=== PATIENT | female | born 1960 ===

== ENCOUNTER 2017-12-01 01:57 | Day surgery (SDC) | payer BC ==
[~2017-12-01] VITALS: Ht 163.8 cm; Wt 69.9 kg
[~2017-12-01 01:57] MED LIST: ACYC-1 PO; LACT1CAP6 PO; MULT-67 PO
[2017-12-01] MEDS ORDERED: HEPARIN SOD LCK FLSH 100 UN/ML ONE ×2 (08:04→08:05)
[2017-12-01] MEDS ORDERED: ROPIVACAINE 0.5% 20 ML VIAL ONE (08:05)
[2017-12-01] MEDS ORDERED: NS(*) 0.9% 10 ML VIAL 10 ML ONE (08:05)
[2017-12-01] MEDS ORDERED: FAMOTIDINE(*) 20MG/50ML PREMIX 50 ML IVPB ONE (09:42)
[2017-12-01 09:46] VITALS: BP 105/70
[2017-12-01] MEDS ORDERED: FAMOTIDINE 20 MG TAB PO ONE (10:00)
[2017-12-01] MEDS ORDERED: LIDOCAINE/SOD BICARB 8.4% SYR ID ONE (10:00)
[2017-12-01] MEDS ORDERED: ceFAZolin(*) 2GM/D5W 50ML 50 ML IVPB ONE (10:00)
[2017-12-01] MEDS ORDERED: NORMOSOL R SOLN(*) 1000 ML BAG 1,000 ML IV PRN (10:00)
[2017-12-01] MEDS ORDERED: MIDAZOLAM 2 MG/2 ML VIAL IVP PRN (10:00)
--- NOTE | 2017-12-01 10:08 | Short(Outpt) Discharge Summary ---
Discharge Summary Reason for Hosp/Final Diag: (1) Rectal cancer Status: Chronic Hospital Course & Plan: Right IJ Power Port placement completed without problems. Departure Discharge to: Home, Self Care Discharge Instructions Home Meds Reported Medications Multivitamin/Iron/Folic Acid (Centrum Adults Tablet) 18 Mg Iron-400 Mcg Tablet, 1 TAB-CAP PO DAILY 11/28/17 Lactobacillus Combination No.4 (PROBIOTIC) 1 Each Capsule, 1 EACH PO DAILY, CAPSULE 11/28/17 Acyclovir (ACYCLOVIR) 200 Mg Capsule, 200 MG PO PRN, #10 CAP 11/28/17 Diet: Regular Activity: As Tolerated Special Instructions: You may shower starting on 12/03/17, but don't immerse the incisions for 2 weeks. You can leave the incisions open to air but leave the steristrips in place until they fall off on their own. There is a suture in the tiny right neck incision that is dissolvable and should fall out in the next 2 weeks. If it doesn't, gently pull on the knot and it may come out with gentle force. If not, if you're comfortable, you can remove it with scissors or you can have someone at the cancer center remove it or I'd be happy to remove it in my office. All other sutures are under your skin and will dissolve over time. You do not need to follow up with me but if you feel that you're having problems related to your port, please call my office. My nurse's direct line is [phone]. She is out of the office on since I'm in the OR all day but she is there the rest of the week (excluding weekends). SHARONDA PACE MD Dec 01, 2017 10:08
--- NOTE | 2017-12-01 10:50 | Post Operative Progress Note ---
Post Operative Progress Note Date: Dec 01, 2017 Time: 10:08 Surgeon: Bernice Dictation number: [id number] Anesthesia: LMA by Dr. Patiño Pre-Op Diagnosis: Rectal cancer Post-Op Diagnosis: XOCHILT Findings: None Procedure(s): Right IJ Power Port Placement Specimen Removed:(May be N/A): None Complications: None Fluids: See anesthesia record Estimated Blood Loss: Minimal Date OP Note Dictated: Dec 01, 2017 Time OP Note Dictated: 10:09 SHARONDA PACE MD Dec 01, 2017 10:10
[2017-12-01] MEDS ORDERED: fentaNYL CITR 100 MCG/2 ML AMP ONE (11:05)
--- NOTE | 2017-12-01 11:16 | RADIOLOGY IMAGING REPORT ---
[place] [facility] [place] Phuong Echeverria : 1960 MR: [id number] V: [id number] EXAM DATE: ORDERING PHYSICIAN: SHARONDA PACE TECHNOLOGIST: [facility] [place] Patient: Phuong Echeverria : 1960 Visit/Account:[id number] Date of Sevice: 12/01/2017 Exam type: C-ARM FLUORO PORT/CATH History: Port placement Comparison: None. Findings: A single intraoperative fluoroscopic spot view over the right upper thorax demonstrate placement of a right IJ port. The continuous total fluoroscopy dose was 0.22727 mGray per meter squared. The cont inuous fluoroscopy time was 22.8 seconds. IMPRESSION: 1. As above Report Dictated By: Lenore Lucio MD at 12/01/2017 11:11 AM Report E-Signed By: Lenore Lucio MD at 12/01/2017 11:12 AM WSN:AMICIVChip
[2017-12-01 11:55] VITALS: BP 105/76
--- NOTE | 2017-12-01 11:55 | RADIOLOGY IMAGING REPORT ---
FACILITY: [facility] PATIENT NAME: Phuong Echeverria : 1960 MR: [id number] V: [id number] EXAM DATE: ORDERING PHYSICIAN: SHARONDA PACE TECHNOLOGIST: Location: [facility] [place] Patient: Phuong Echeverria : 1960 Visit/Account:[id number] Date of Sevice: 12/01/2017 CHEST SINGLE AP History: Power Port placement FINDINGS: Comparison studies: None. Tubes and Lines: There is an Implanted power port from a right IJ approach with tip projecting over the mid SVC. Lungs and pleura: Well aerated. No evidence of focal consolidation or pleural effusions. No evid ence of pneumothorax. Mediastinum: normal. Cardiac silhouette: normal . Osseous structures: Unremarkable for age . IMPRESSION: Power port appears appropriately positioned without adverse sequelae. No acute cardiopulmonary pathology identified. Report Dictated By: Connor Way MD at 12/01/2017 11:49 AM Report E-Signed By: Connor Way MD at 12/01/2017 11:50 AM WSN:[email or web address]
[2017-12-01 13:27] VITALS: BP 104/69
[2017-12-01 13:28] VITALS: BP 100/70
--- NOTE | 2017-12-01 17:19 | OPERATIVE REPORT 1 ---
EVENT DATE: December 01, 2017 SURGEON: Wilman Queen MD ANESTHESIOLOGIST: Scotty Patiño MD ANESTHESIA: LMA. PREOPERATIVE DIAGNOSIS Rectal cancer. POSTOPERATIVE DIAGNOSIS Rectal cancer. PROCEDURE PERFORMED Right internal jugular PowerPort placement. COMPLICATIONS None. CONDITION Stable. BLOOD LOSS Minimal. INDICATIONS This is a 57-year-old female who, unfortunately, was recently diagnosed with a rectal cancer. She has seen Oncology, and they are setting her up for neoadjuvant chemotherapy. They have requested her to have a chemotherapy port to facilitate this. DESCRIPTION OF PROCEDURE Patient was brought to the operating room and placed supine on the operating table. LMA anesthesia was administered, and her right neck, jaw line, chest, and shoulder were prepped and draped in a sterile fashion. Timeout was completed. With the patient in Trendelenburg, I used the ultrasound probe to identify her internal jugular vein. I used the access needle and accessed it on one attempt. I threaded the wire through the needle and removed the needle. I used the C-arm to position the wire in the SVC just above the right atrium. I then marked the skin and then anesthetized the skin at the access site in her neck as well as in the infraclavicular skin for the port pocket. I then made a stab incision in her neck at the level of the wire and then a transverse incision in the infraclavicular skin. I dissected through the dermis at this location and dissected into the subcutaneous fat and then created a pocket caudad to the incision. I made sure this was hemostatic and then used the tunneler and directed the catheter through the subcutaneous tissues from the pocket up to the stab incision in the neck and then threaded the dilator and sheath over the wire with the patient in Trendelenburg. I used the C-arm to confirm that the dilator and sheath and wire were still in the SVC. I then removed the dilator and wire and then threaded the catheter through the sheath. I removed the sheath and then pulled the catheter back using the C-arm to position in the SVC just above the right atrium. I then cut the catheter to length, placed the port on the catheter, and locked it in place with a locking collar. I sutured the port to the underlying muscle fascia with 3-0 nylon at the corners. I then aspirated blood through the port and catheter and then flushed it with 10 mL of preservative-free saline, followed by 5 mL of 100 units /mL of heparinized saline. It aspirated and flushed with no problems. I took more C-arm images to confirm that the catheter was without any kinks or twists, and everything was in good position. It looked good. I then placed a single 3- 0 chromic suture in a stab incision in the neck and then closed the infraclavicular incision with interrupted 3-0 Vicryl deep dermal sutures and 4- 0 Monocryl running subcuticular sutures. Skin was clean and dried, and Steri- Strips were applied. The patient was awakened in the LMA room, and she was transported to the recovery room in stable condition having tolerated the procedure without any apparent problems. EDGAR
== END 2017-12-01 11:55 | disposition home or self-care (01) ==
LOC: OR 01:57
PROVIDERS: ATTEND Surgery
DX: C20 Malignant neoplasm of rectum (principal)
CPT/HCPCS: 36561; 71045; 77001; J1642; J2250; J2795; J3010; J3490; J0690

== ENCOUNTER 2018-02-07 10:50 | Outpatient (RCR) | payer BC ==
[2017-11-29 17:15] LABS: PLATELET COUNT, AUTOMATED 277 K/uL (150-450)
--- NOTE | 2017-11-30 04:32 | TOBIN CONSULT ---
EVENT DATE: November 29, 2017 PRIMARY SITE AND HISTOPATHOLOGY Invasive adenocarcinoma of the rectum, moderately differentiated. Tumor is negative for microsatellite instability. Tumor estimated at 4-5 cm from anal canal. Mass is 80% circumferential with partial obstruction. Patient referred for preoperative radiotherapy with concurrent systemic chemotherapy considerations. Stage T3 NX M0. 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 She is referred to me by Dr. Giovanni Lacy to discuss radiotherapy options for newly diagnosed rectal carcinoma. Patient moved to [place] this past July. She is still working in [place] in [facility] at this time, but hopes to establish a practice locally this next year. The patient presents to her providers with frequent bowel movements with intermittent rectal bleeding. Rectal bleeding could be present with bowel movements and also between bowel movements. This was associated with increased gas and mucus. Bowel frequency is fairly unpredictable according to the patient over the last six months. She has noticed a change in the caliber of the stools. Stools are generally quite soft, and she has the feeling of incomplete evacuation. At times, the patient will notice some lower perirectal pain. The patient sought evaluation with [place] providers. The initial endoscopy was performed by Dr. Jeffrey Jacobson. Endorectal ultrasound was performed by Dr. Diaz Corral. Colonoscopy date November 10, 2017 with biopsy positive for moderately differentiated adenocarcinoma. Tubular adenoma was removed from the rectosigmoid junction, and tubular adenoma was removed from the cecum. Radiographic interpretation has included a lower EUS, which was performed on November 22, 2017 confirming the T3 lesion as stated above. The patient underwent CT scan of the abdomen and pelvis in [place]. That study was reviewed on the PAC system with clear identification of the mass. CT report is now available. This was obtained on November 21, 2017, and was read as negative. I have requested a PET CT scan, which will be obtained later this week. Patient was worked into the schedule by Dr. Reich on Tuesday of this week in [place]. She was advised that she would need preoperative radiation therapy and an infusion of 5-FU, and is seen today for consultation. She is scheduled to have a CBC, CMP and CEA tumor marker drawn this afternoon. Patient's other complaint is fatigue. This has been increasing over the past year. She denies any change in her weight, however. No bone pain or respiratory symptoms. She does at times experience intermittent right upper quadrant pain. She states that she had an ultrasound study of her gallbladder earlier last year in [place] and was told that this was negative. Patient is seen for an initial assessment. FAMILY HISTORY Family history is positive for colon carcinoma in maternal first cousin at age 40, maternal uncle with colon carcinoma at age 50. Maternal great aunt had colon carcinoma as well. MEDICATIONS 1. Acyclovir 200 mg q.day. 2. Folic acid daily. 3. Probiotic daily. ALLERGIES None. PAST MEDICAL HISTORY Total abdominal hysterectomy, [place], remotely. Prior tonsillectomy. SOCIAL HISTORY Patient works real time analyst as a chiropractor. She has one brother. She is a nonsmoker. No children, single. PHYSICAL EXAMINATION GENERAL: The patient is pleasant 57-year-old female, medium build. VITALS: Vitals uploaded to EMR. HEENT: No peripheral lymphadenopathy. LUNGS: Clear bilaterally. HEART: Regular, no audible murmur. ABDOMEN: Soft with no gross organomegaly, mass or tenderness. RECTAL: Rectal exam was performed in the Weaver' position. Good sphincter tone. Mass could be palpated at the tip of the examining finger. This appeared to be a polypoid mass posteriorly. I would characterize this as tethered, but not fixed. Blood was present on the examining finger glove. EXTREMITIES: No edema or cyanosis. NEUROLOGICAL: Exam is intact. IMPRESSION This is a 57-year-old female with newly diagnosed adenocarcinoma of the mid to lower rectum. Tumor is described as occupying 80% of the circumference of the lumen of the rectum, and appears to be a full thickness T3 lesion by endorectal ultrasound. RECOMMENDATIONS Dr. Reich and I have both advised the patient to have a PET CT scan, which will be useful in demonstrating the lesion and also has a higher sensitivity for any pelvic lymph nodes. This will be scheduled for later this week if possible. Baseline CBC, CMP and CEA were drawn after my visit today. I went through the present NCCN guidelines for rectal carcinoma with the patient today on the computer. I reviewed her outside imaging. I described the radiation therapy course, which is given with an IMRT treatment technique in modern centers, covering the primary mass with a 2-3 cm margin, and treatment barth encompassing the draining lymphatics. Treatment course will cover the primary mass and lymph nodes to 45 gipson and 25 fractions with a boost of 55 gipson and 5 fractions. Treatment will be delivered with week one and week five infusional 5FU. Patient will need surgical resection of the mas six to eight weeks following completion of the radiotherapy course. She is presently determining which surgeon she would like to consult with for an opinion. She obviously is very interested in the potential of an LAR resection following the radiotherapy course for sphincter preservation. I told her that this is a surgical judgement , and hopefully this would be possible at the completion of the chemotherapy and radiation course. I suspect she would undergo repeat endoscopic reassessment at approximately six weeks and appropriate imaging. In general, our protocol is to utilize PET CT scan at baseline and also at six weeks to determine response prior to surgery. Patient was reassured by the consultation today. Clinical consultation took approximately 90 minutes. Targeting simulation has been scheduled for Tuesday of this week. Treatments will start at approximately ten days after insurance preauthorization has been completed. Patient has been referred for port placement. All questions answered to her satisfaction. I suspect the mucin produced by the tumor is interfering with her ability to detect stools accurately. Since we have the correct diagnosis, she can take one or two Imodium AD tablets at this time to slow the bowel frequency down. Typically, the bleeding will stop by week three to four of the radiation course, and stools tend to normalize towards the end of the treatment program. Hopefully this will be the case for this lady as well. She would like to continue to work during the treatment course, and I have no objection to that plan. Thank you for the referral and expedited consultation earlier this week. (addendum: 12/13/17 Radiation therapy pre-op course started 12/12/17 with IV 5FU directed by medical oncology; final pre0p stage: T3 N0 M0 clinical by imaging; surgery 6-8 weeks post pre-op therapy) [facility]
--- NOTE | 2018-01-31 22:08 | ONCOLOGY COMPLETION NOTE ---
EVENT DATE: January 31, 2018 ONCOLOGY DIAGNOSIS Invasive adenocarcinoma of the rectum, moderately differentiated. Tumor location estimated at 4 to 5 cm from the distal anal canal. Tumor is 80% circumferential with partial obstruction. Radiographic stage [id number]. TREATMENT PLAN Preoperative external beam radiation therapy, to be followed by surgical resection. The radiation therapy was started December 12, 2017, date completed January. DOSE AND TECHNIQUE 4500 cGy was delivered in 25 fractions at 180 cGy per fraction directed to the primary rectal mass with a 2 to 3 cm circumferential margin and coverage of the pelvic lymph nodes. Field reduction was performed for the last five treatments , which were delivered to the rectal mass only. Additional 1000 cGy was delivered in five fractions at 200 cGy per fraction for a combined dose of 5500 cGy in 30 treatments to the rectal tumor with weekly 5FU infusion. The latter was directed by Dr. Reich. TOLERANCE "Milka" did reasonably well with the treatment program. Both Dr. Olivo and I saw her on several occasions where she was having some perirectal discomfort. Patient, unfortunately, has fair to poor control of the bowels due to the low location of the rectal mass and at times may experience seepage. She did have some initial sensitivity to the 5FU medications. Adjustments were made by Dr. Giovanni Graff, and she was able to resume treatment and complete the program. The patient will next follow up with Dr. Vergara for initial surgical consultation in [place], [place]. This is scheduled on February 01, 2018, according to our staff. Patient was informed that she could come into the [facility] at any point if she is having any problems. We would expect continued cytoreduction from the chemotherapy and radiation program over the next six to eight weeks. Patient understandably is hoping that she can have a sphincter preservation surgical technique; I have emphasized to her that this decision will be up to her surgeon based on probablilities of intact spincter control. Patient has been instructed to follow up with Dr. Reich for next medical oncology recommendations three to five weeks following her surgical excision. [facility]
[~2018-02-07] VITALS: Ht 163.8 cm; Wt 72.0 kg
[~2018-02-07 10:50] MED LIST changes: +DIPH-1 PO; +SILV20CR2 TP; +VENL37.594 PO
== END 2018-02-26 ==
LOC: RAON 10:50
PROVIDERS: ATTEND Radiology Radiation Oncology
DX: Z51.0 Encounter for antineoplastic radiation therapy (principal); C20 Malignant neoplasm of rectum; M54.5 Low back pain; R53.83 Other fatigue; R06.02 Shortness of breath; R19.7 Diarrhea, unspecified; K92.1 Melena
CPT/HCPCS: 36415; 77280; 77290; 77300; 77301; 77336; 77338; 77386; 82040; 82247; 82310; 82374; 82378; 82435; 82565; 82947; 84075; 84132; 84155; 84295; 84450; 84460; 84520; 85025; 99203; 99213

== ENCOUNTER 2018-02-24 09:58 | Outpatient (RCR) | payer BC ==
[2017-12-12 09:32] VITALS: BP 108/73
--- NOTE | 2017-12-15 17:49 | ONCOLOGY FOLLOW UP NOTE ---
EVENT DATE: December 15, 2017 DIAGNOSES 1. Stage T3 rectal adenocarcinoma. 2. Tubular adenoma. CHIEF COMPLAINT Patient is here today for her week two of 5-FU intravenous continuous infusion for the treatment of neoadjuvant treatment for her rectal adenocarcinoma. ONCOLOGY HISTORY Patient is a 57-year-old female who presented with change in bowel movement with diarrhea, smaller caliber stools and rectal bleeding. She had a colonoscopy done on November 10, [address] Jeffrey Jacobson and two sessile 5 mm polyps were found at the rectosigmoid junction and 3 mm sessile polyp at the cecum. All turned out to be tubular adenoma by pathology. There was an ulcerated fungating 4 cm mass found in the cecum, 3-5 cm from the anus with partial obstruction, and the pathology was positive for moderately differentiated adenocarcinoma, negative for MSI by immune stain. She had an EUS done on November 22, 2017 which showed a mass in the rectum with uT3 and uN0 with no lymph nodes seen. CT abdomen and pelvis done on November 21, 2017 showed no evidence of systemic metastasis. She had central port placed on December 01, 2017. Patient started chemoradiation with 5-FU intravenous continuous infusion started on December 12, 2017. PAST MEDICAL HISTORY Insignificant, except for her recent rectal adenocarcinoma. PAST SURGICAL HISTORY 1. Hysterectomy. 2. Tonsillectomy as a child. SOCIAL HISTORY Patient is single with no children. 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 She drinks rarely. Denies any use of illicit drugs. FAMILY HISTORY Maternal first cousin had colon cancer at the age of 40. Maternal uncle with colon cancer in his 50s and a maternal great aunt had also colon cancer. CURRENT MEDICATIONS 1. Multivitamin. 2. Lactobacillus combination. 3. Probiotic one capsule daily. 4. Acyclovir 200 mg orally as needed. ALLERGIES No known drug allergies. REVIEW OF SYSTEMS CONSTITUTIONAL: No appetite or weight change. No fever, chills or sweating. No recent infection. HEENT: Ears: No tinnitus or hearing problem. Nose: No nasal discharge or epistaxis. Throat: No sore throat or mouth ulcers. Eyes: No diplopia or visual changes. RESPIRATORY: Patient has some shortness of breath. No cough, expectoration or hemoptysis. CARDIOVASCULAR: No chest pain, orthopnea, or paroxysmal nocturnal dyspnea (PND) . No edema. No palpitations. GASTROINTESTINAL: No nausea or vomiting. No diarrhea or constipation. No change in bowel movements. No heartburn or swallowing difficulties. No abdominal pain. No jaundice. No hematemesis, melena or rectal bleeding. GENITOURINARY: No hematuria or dysuria. MUSCULOSKELETAL: No pain in the muscles, joints or bones. NEUROLOGICAL: No tingling or numbness in the hands or feet. No headaches or convulsions. HEMATOLOGIC/LYMPHATIC: No bleeding or easy bruising. No weakness or fatigue. No enlarged lymph nodes. SKIN: No skin rash or lumps. PSYCHIATRIC: No anxiety or depression. PHYSICAL EXAMINATION GENERAL: Looks stable. Well-developed, well-nourished, and in no acute distress. VITAL SIGNS: Blood pressure 104/66, pulse 64 per minute, respirations 16 per minute, temperature 99.1, pulse ox 96% on room air. HEENT: Head: Atraumatic. No sinus tenderness to palpation. Eyes: No icterus or conjunctivitis. Mouth and Throat: No oral thrush or mucositis. NECK: Supple. No cervical or supraclavicular lymphadenopathy. LUNGS: Clear to auscultation and percussion bilaterally. HEART: Regular rate and rhythm. No gallops, murmurs, clicks or rubs. ABDOMEN: Soft and lax. No tenderness. No hepatosplenomegaly. No masses. EXTREMITIES: No cyanosis, clubbing or edema. LYMPHATICS: No peripheral lymphadenopathy. NEUROLOGICAL: Conscious, alert and oriented times three. No focal motor or sensory deficits. PSYCHIATRIC: Mood and affect appear normal. SKIN: No skin rash, bruise or purpuric eruption. DIAGNOSTIC DATA CBC shows white count 6.4, hemoglobin 13.1, hematocrit 37.8, platelets 271,000. Chem panel totally normal. CEA was 3.1. ASSESSMENT 1. Stage III rectal adenocarcinoma moderately differentiated negative for MSI by immunostain after colonoscopy and biopsy of the rectal mass done on November 10, 2017. EUS on November 22, 2017 showed T3 lesion with no lymph nodes. CT abdomen and pelvis on November 21, 2017 was negative for systemic metastasis. Her pretreatment CEA was 3.1. Patient started treatment with chemoradiation with 5- FU intravenous continuous infusion started on December 12, 2017. Patient is tolerating treatment very well so far. I am planning to proceed with her week two of 5-FU intravenous continuous infusion as per schedule. I will see her in a week with CBC, chem panel and CEA at that time. So far patient is doing really very well. 2. Tubular adenoma of the rectosigmoid and cecal polyps by colonoscopy done on November 10, 2017. PLAN 1. 5-FU intravenous continuous infusion week two. 2. Patient to return in one week with CBC, chem panel, CEA. 3. Patient to contact us for any new concerns or complaints. MTDD
[2017-12-16] MEDS: HEPARIN FLSH (PORT) 500 UN/5ML IVP PRN (08:26)
[2017-12-19 10:49] VITALS: BP 121/80
[2017-12-22 16:24] VITALS: BP 104/69
--- NOTE | 2017-12-22 20:15 | ONCOLOGY FOLLOW UP NOTE ---
EVENT DATE: December 22, 2017 DIAGNOSES 1. Stage T3 rectal adenocarcinoma. 2. Tubular adenoma. CHIEF COMPLAINT Patient is here today for her week three of 5-FU intravenous continuous infusion for the treatment of neoadjuvant therapy for her rectal adenocarcinoma. ONCOLOGY HISTORY Patient is a 57-year-old female who presented with change in bowel movement with diarrhea, smaller caliber stools and rectal bleeding. She had a colonoscopy done on November 10, [address] Jeffrey Jacobson and two sessile 5 mm polyps were found at the rectosigmoid junction and 3 mm sessile polyp at the cecum. All turned out to be tubular adenoma by pathology. There was an ulcerated fungating 4 cm mass found in the cecum, 3-5 cm from the anus with partial obstruction, and the pathology was positive for moderately differentiated adenocarcinoma, negative for MSI by immune stain. She had an EUS done on November 22, 2017 which showed a mass in the rectum with uT3 and uN0 with no lymph nodes seen. CT abdomen and pelvis done on November 21, 2017 showed no evidence of systemic metastasis. She had central port placed on December 01, 2017. Patient started chemoradiation with 5-FU intravenous continuous infusion started on December 12, 2017. HISTORY OF PRESENT ILLNESS Patient is here today for her week three of IV continuous infusion 5-FU neoadjuvant therapy for her rectal adenocarcinoma. Patient is tolerating treatment very well so far. She is complaining of occasional bloody nose. She has also exertional shortness of breath. She has rectal bleeding, but it is stable. She has burning in her vagina lately and around the anal area, but other than that she is really tolerating treatment well. PAST MEDICAL HISTORY Insignificant, except for her recent rectal adenocarcinoma. PAST SURGICAL HISTORY 1. Hysterectomy. 2. Tonsillectomy as a child. SOCIAL HISTORY Patient is single with no children. 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 She drinks rarely. Denies any use of illicit drugs. FAMILY HISTORY Maternal first cousin had colon cancer at the age of 40. Maternal uncle with colon cancer in his 50s and a maternal great aunt had also colon cancer. CURRENT MEDICATIONS 1. Multivitamin. 2. Lactobacillus combination. 3. Probiotic one capsule daily. 4. Acyclovir 200 mg orally as needed. ALLERGIES No known drug allergies. REVIEW OF SYSTEMS CONSTITUTIONAL: No appetite or weight change. No fever, chills or sweating. No recent infection. HEENT: Ears: No tinnitus or hearing problem. Nose: She has occasional bloody nose. Throat: No sore throat or mouth ulcers. Eyes: No diplopia or visual changes. RESPIRATORY: She has exertional shortness of breath. No cough, expectoration or hemoptysis. CARDIOVASCULAR: No chest pain, orthopnea, or paroxysmal nocturnal dyspnea (PND) . No edema. No palpitations. GASTROINTESTINAL: No nausea or vomiting. No diarrhea or constipation. No change in bowel movements. No heartburn or swallowing difficulties. No abdominal pain. No jaundice. No hematemesis, melena. She has rectal bleeding which is stable. GENITOURINARY: She has burning in the vagina lately. No hematuria or dysuria. MUSCULOSKELETAL: No pain in the muscles, joints or bones. NEUROLOGICAL: No tingling or numbness in the hands or feet. No headaches or convulsions. HEMATOLOGIC/LYMPHATIC: No bleeding or easy bruising. No weakness or fatigue. No enlarged lymph nodes. SKIN: No skin rash or lumps. PSYCHIATRIC: No anxiety or depression. PHYSICAL EXAMINATION GENERAL: Looks stable. Well-developed, well-nourished, and in no acute distress. VITAL SIGNS: Blood pressure 104/69, pulse 61 per minute, respirations 16 per minute, temperature 98.9, pulse ox 97% on room air. HEENT: Head: Atraumatic. No sinus tenderness to palpation. Eyes: No icterus or conjunctivitis. Mouth and Throat: No oral thrush or mucositis. NECK: Supple. No cervical or supraclavicular lymphadenopathy. LUNGS: Clear to auscultation and percussion bilaterally. HEART: Regular rate and rhythm. No gallops, murmurs, clicks or rubs. ABDOMEN: Soft and lax. No tenderness. No hepatosplenomegaly. No masses. EXTREMITIES: No cyanosis, clubbing or edema. LYMPHATICS: No peripheral lymphadenopathy. NEUROLOGICAL: Conscious, alert and oriented times three. No focal motor or sensory deficits. PSYCHIATRIC: Mood and affect appear normal. SKIN: No skin rash, bruise or purpuric eruption. DIAGNOSTIC DATA CBC shows white count 4.9, hemoglobin 13.3, hematocrit 38.5, platelets 274,000. Chem panel totally normal except AST 44. CEA is 3.1. ASSESSMENT 1. Stage T3 rectal adenocarcinoma, moderately differentiated, negative for MSI by immunostain after colonoscopy and biopsy of the rectal mass done on November 10, 2017. EUS on November 22, 2017 showed T3 lesion with no lymph nodes. CT abdomen and pelvis on November 21, 2017 was negative for systemic metastasis. Her pretreatment CEA was 3.1. Patient started treatment with chemoradiation with 5- FU intravenous continuous infusion started on December 12, 2017. She received two weeks so far and is tolerating treatment very well. I am planning to proceed with her third week this time with 5-FU intravenous continuous infusion. Patient is scheduled for six weeks of radiation therapy and I am planning to continue chemotherapy at the same time. I will see her in a week with CBC, chem panel and CEA. 2. Tubular adenoma of the rectosigmoid and rectal polyps by colonoscopy done on November 10, 2017. PLAN 1. 5-FU intravenous continuous infusion, week three. 2. Patient to return in one week with CBC, chem panel, CEA. 3. Patient to contact us for any new concern or complaints. MTDD
[2017-12-23 10:54] VITALS: BP 104/71
[2017-12-23] MEDS: HEPARIN FLSH (PORT) 500 UN/5ML IVP PRN ×2 (12:15→12:16)
[2017-12-28 15:26] VITALS: BP 102/71
[2017-12-30 16:05] VITALS: BP 106/66
--- NOTE | 2017-12-30 19:19 | ONCOLOGY FOLLOW UP NOTE ---
EVENT DATE: December 30, 2017 DIAGNOSES 1. Stage T3 rectal adenocarcinoma. 2. Tubular adenoma. CHIEF COMPLAINT Patient is here today for week three of 5-FU intravenous continuous infusion, neoadjuvant treatment for her rectal adenocarcinoma. ONCOLOGY HISTORY Patient is a 57-year-old female who presented with change in bowel movement with diarrhea, smaller caliber stools and rectal bleeding. She had a colonoscopy done on November 10, [address] Jeffrey Jacobson and two sessile 5 mm polyps were found at the rectosigmoid junction and 3 mm sessile polyp at the cecum. All turned out to be tubular adenoma by pathology. There was an ulcerated fungating 4 cm mass found in the cecum, 3-5 cm from the anus with partial obstruction, and the pathology was positive for moderately differentiated adenocarcinoma, negative for MSI by immune stain. She had an EUS done on November 22, 2017 which showed a mass in the rectum with uT3 and uN0 with no lymph nodes seen. CT abdomen and pelvis done on November 21, 2017 showed no evidence of systemic metastasis. She had central port placed on December 01, 2017. Patient started chemoradiation with 5-FU intravenous continuous infusion started on December 12, 2017. HISTORY OF PRESENT ILLNESS Patient is here today for week three of intravenous continuous infusion 5-FU neoadjuvant therapy for her rectal adenocarcinoma after we skipped her treatment last week because of stomatitis and lip ulcers. Patient is doing fine currently and she is asymptomatic, and her ulcers of the lip are completely resolved now with Valtrex. Her rectal bleeding also resolved with her chemoradiation currently. PAST MEDICAL HISTORY Insignificant, except for her recent rectal adenocarcinoma. PAST SURGICAL HISTORY 1. Hysterectomy. 2. Tonsillectomy as a child. SOCIAL HISTORY Patient is single with no children. 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 She drinks rarely. Denies any use of illicit drugs. FAMILY HISTORY Maternal first cousin had colon cancer at the age of 40. Maternal uncle with colon cancer in his 50s and a maternal great aunt had also colon cancer. CURRENT MEDICATIONS 1. Multivitamin. 2. Lactobacillus combination. 3. Probiotic one capsule daily. 4. Acyclovir 200 mg orally as needed. ALLERGIES No known drug allergies. REVIEW OF SYSTEMS CONSTITUTIONAL: No appetite or weight change. No fever, chills or sweating. No recent infection. HEENT: Ears: No tinnitus or hearing problem. Nose: She has occasional bloody nose. Throat: No sore throat or mouth ulcers. Eyes: No diplopia or visual changes. RESPIRATORY: She has exertional shortness of breath. No cough, expectoration or hemoptysis. CARDIOVASCULAR: No chest pain, orthopnea, or paroxysmal nocturnal dyspnea (PND) . No edema. No palpitations. GASTROINTESTINAL: No nausea or vomiting. No diarrhea or constipation. No change in bowel movements. No heartburn or swallowing difficulties. No abdominal pain. No jaundice. No hematemesis, melena. She has rectal bleeding which is stable. GENITOURINARY: She has burning in the vagina lately. No hematuria or dysuria. MUSCULOSKELETAL: No pain in the muscles, joints or bones. NEUROLOGICAL: No tingling or numbness in the hands or feet. No headaches or convulsions. HEMATOLOGIC/LYMPHATIC: No bleeding or easy bruising. No weakness or fatigue. No enlarged lymph nodes. SKIN: No skin rash or lumps. PSYCHIATRIC: No anxiety or depression. PHYSICAL EXAMINATION GENERAL: Looks stable. Well-developed, well-nourished, and in no acute distress. VITAL SIGNS: Blood pressure 106/66, pulse 83 per minute, respirations 16 per minute, temperature 98, pulse ox 92% on room air. HEENT: Head: Atraumatic. No sinus tenderness to palpation. Eyes: No icterus or conjunctivitis. Mouth and Throat: No oral thrush or mucositis. NECK: Supple. No cervical or supraclavicular lymphadenopathy. LUNGS: Clear to auscultation and percussion bilaterally. HEART: Regular rate and rhythm. No gallops, murmurs, clicks or rubs. ABDOMEN: Soft and lax. No tenderness. No hepatosplenomegaly. No masses. EXTREMITIES: No cyanosis, clubbing or edema. LYMPHATICS: No peripheral lymphadenopathy. NEUROLOGICAL: Conscious, alert and oriented times three. No focal motor or sensory deficits. PSYCHIATRIC: Mood and affect appear normal. SKIN: No skin rash, bruise or purpuric eruption. DIAGNOSTIC DATA CBC shows white count 5.4, hemoglobin 13.7, hematocrit 39.3, platelets 275,000. Chem panel totally normal except AST 37. CEA is 2.8, which is down from 3.1. DPD genotype was negative and phenotype was normal, so there is no deficiency of DPD enzyme. ASSESSMENT 1. Stage T3 rectal adenocarcinoma, moderately differentiated, negative for MSI high immunostain after colonoscopy and biopsy of the rectal mass done on November. EUS November 22, 2017 showed T3 lesion with no lymph nodes. CT abdomen and pelvis on November 21, 2017 was negative for systemic metastasis. Her pretreatment CEA was 3.1. Patient started treatment with chemoradiation with 5- FU intravenous continuous infusion started on December 12, 2017. She received two weeks in a row and she developed mouth ulcers mainly of the lips, and the patient had a history of herpes viral infections, and patient started treatment with Valtrex and she is doing much better now. DPD enzyme testing was done and it was negative for the genotype 1a and normal for the phenotype, so the patient does not have deficiency of the DPD enzyme. I am planning to resume her week three of 5-FU intravenous continuous infusion as scheduled on Tuesday, but I will decrease the dose from 1500 to 1200 this week because this week s only four days. I will see her in a week with CBC, chem panel and CEA. She showed response to the treatment and her CEA dropped from 3.1 to 2.8, and the patient was happy with that. 2. Lip ulcers, most probably due to herpes infection. I am planning to use acyclovir 1 g daily during her treatment. Hopefully this will prevent further flare-ups in the future during her chemotherapy. 2. Tubular adenoma of the rectosigmoid and rectal polyps by colonoscopy done November 10, 2017. PLAN 1. 5-FU intravenous continuous infusion, week three with reduced dose, 1200 mg instead of 1500 mg because this week will be short one day. 2. Acyclovir 1 g daily. 3. Patient to return in one week with CBC, chem panel and CEA. 4. Patient to contact us for any new concern or complaints. MTDD
[2018-01-03 14:21] VITALS: BP 105/76
--- NOTE | 2018-01-03 15:31 | Pharmacy Note ---
Pharmacy Note Note: Chemotherapy Education Note: LATE ENTRY Date of Education: 12/12/17 Chemotherapy Regimen: Weekly 5-Fluorouracil + XRT Phuong Echeverria (Renee) is a very pleasant 57 yo F with rectal cancer who was seen on 12/12/17 for chemotherapy education. Milka will be receiving 5-Fluorouracil via a CADD pump on Mon - Fri during radiation therapy. We discussed dosing, administration, and side effects. We also discussed the management of the potential side effects. We reviewed appropriate scheduling and appropriate use of antiemetics. Prescriptions for anti-emetics were called in to the patient's pharmacy by the can worker, to the patient's preferred pharmacy. Milka verbalized understanding of all that was discussed. The schedule of treatment administration was explained in detail to the patient in regards to lab visits, timing and sequence of premedications and chemotherapy , followed by any supportive medications to be given. Discussed the purpose of the port and why we administer chemotherapy through a port. Port placed prior to chemo ed appointment. Patient's diagnosis, treatment plan, and intent of treatment along with goals are outlined on the signed consent form, that was reviewed and signed at the end of this appointment. The goal is curative treatment (recovery from disease) . Reviewed the importance of adherence to scheduled chemotherapy and radiation treatment and close follow up. We reviewed and discussed toxicities of supportive care medications and how to appropriately use supportive medications including the schedule of anti- emetics. These medications include the following: Take home medications: ondansetron, prochlorperazine, lorazepam, emla, loperamide Pre-medications: None required Supportive Medications: None required A medication reconciliation was performed. The potential for drug-drug interactions were explained and the patient was instructed to inform the office of any new medications including short term antibiotics, new prescriptions, herbal/supplements, and [id number] medications. Milka was advised to avoid NSAID medications such as aspirin, ibuprofen, etc. In addition, the patient was advised to avoid acetaminophen, but to call the office with questions regarding use of OTC pain medications. We have also discussed the potential for long and short term side effects of chemotherapy including, but not limited to the side effects outlined below: -Low WBCs or neutropenia: Patient may experience bone marrow toxicity that increases the risk for infection. Patient is aware to look for signs and symptoms of infection (e.g. fever of higher than 100.4F, chills, sore throat, etc.) and knows what number to call and when to contact the clinic. Advised patient of things they can do such as wash hands with soap and water often, avoid people who are sick, and avoid crowds during times of low blood counts ( typically 7-10 days post chemotherapy). In this case, neutropenia may present at any point after 7-10 day until IVCI 5-FU is complete. Discussed the need for possible dose reductions or delays in therapy based on bone marrow response to chemotherapy. - Low RBCs or anemia: Anemia is when you don't have enough red blood cells to carry oxygen through your body, which causes fatigue, weakness, lightheadedness , pale skin, SOB, or headaches. Discussed the importance of getting enough restful sleep at night and eating a diet rich in iron. Lab values will be closely monitored to check your RBCs. Advised patient to contact the clinic if they have a fast heart rate, dizziness, or lightheadedness. -Low platelet counts or thrombocytopenia: Patient may experience low platelets which can lead to increased risk of bleeding, easy bruising, black or bloody stools, or small red or purple spots on the skin. Platelets help blood to clot and if your platelets are low enough, bleeding may not stop after a few minutes. Excessive bleeding or bruising, red spots on your skin or new onset headaches require a phone call to the clinic. - Fatigue (feeling tired): Some patients may experience fatigue, or feel tired , weak, low energy, drained or exhausted. You will experience fatigue after chemotherapy, but the amounts for each person and chemotherapy will differ. Advised patient to stay active as much as they can with light exercise, take short naps if needed, get a restful night of sleep, and eat a well-balanced diet. Call the clinic if you are unable to get out of bed or do typical daily activities, have shortness of breath, or have trouble walking small distances -Nausea or vomiting: Most patients may experience some level of nausea ( feeling queasy or sick to your stomach) or vomiting. Advised patient to take their anti-nausea medications as prescribed, drink plenty of fluids, eat several small meals throughout the day, eat bland easy to digest foods, and speak to our plant maintenance manager if they have questions. Call the clinic if the nausea or vomiting is not eased by your medications and lasts 12 hours or longer, or if unable to eat or drink, or keep medicines down. - Appetite changes (eating less or more): You may experience a decrease or increase in your appetite that might last a day, weeks or months. Advised patient to set a schedule for eating and drink high protein drinks to maintain calories. Ask your doctor or nurse for a plant maintenance manager consult to help manage your appetite changes or if you have concerns about your appetite changes. Contact the clinic if you notice a change in weight and if you are unable to take in more than a few bites of food or sips of liquid at mealtimes. Favorite foods may also taste different or may not be pleasing. -Mouth sores and oral care (mucositis or stomatitis): Patient was informed that they may experience taste changes, dry mouth, and potential mouth sores due to the chemotherapy. The best way to prevent and treat mouth sores is to do routine mouth care each day. If mouth sores occur, use mouth rinses with baking soda, salt and warm water after meals and before bed (dissolve 2 TBSP of baking soda and 1/2 tsp of salt in 8 oz of warm water--swish and spit). Avoid mouthwashes with alcohol and spicy food if mouth sores exist. If dry mouth occurs, sucking on ice chips or sugar free hard candy can help. -Cardiotoxicity: Patient may experience cardiotoxicity as a result of chemotherapy. Cardiotoxicity may manifest as angina, AR/ischemia, arrhythmia, and heart failure. Continuous infusions and CAD are risk factors. Cardiotoxicity may cause reversible direct myocardial toxicity or exacerbate underlying myocardial dysfunction. Symptoms of cardiotoxicity discussed were chest pain, shortness of breath, and edema. -Neuropathy (numbness-pins and needles-tingling): Patient may experience acute cerebellar toxicity, including confusion, disorientation, ataxia, or visual disturbances. The patient is advised to report symptoms to the clinic if they experience any of these symptoms, including burning, tingling, and numbness in the hands, and feet. -Diarrhea: 5-FU is associate with severe diarrhea. Patient may experience intermittent episodes of diarrhea to severe diarrhea. Discussed use of loperamide 2 capsules with the first sign of diarrhea, then 1 capsule every 2 hours until diarrhea free for 12 hours. Discussed importance of maintaining hydration and fluid status in addition to electrolytes. Close monitoring will occur on a weekly basis or more frequently depending upon signs and symptoms reported. -Hand -Foot Syndrome: 5-FU is associated with hand-foot syndrome which consists of tingling, pain, swelling, erythema with tenderness, and desquamation. Discussed that it is more common with continuous infusion 5-FU, with onset being after 8-9 weeks, but may occur earlier in the course of treatment. Discussed tips for preventing HFS, such as limiting exposure to heat /hot water when bathing or doing dishes, take cool showers or baths, avoid sources of heat (saunas, hot tubs, sun exposure), minimize heat and friction on the feet and hands, well fitted shoes and socks with padding in area of pressure , and use of an emollient or keratolytic agent on calloused areas of the hands and feet. -Skin Problems/nail changes/photosensitivity: Some patients may experience a variety of symptoms including: rash, dry/cracked skin, red/inflammed skin, brittle/cracked/yellow nails, red/blistering skin near the areas of radiation, sunburn easily, and itching. Advised patient that they can moisturize their skin daily, use sunscreen, use mild soaps when washing the skin and to avoid products with perfumes, dyes, or alcohol. Regarding fingernails specifically, patient is advised to keep their nails short and trimmed. -Infertility: Risk for infertility secondary to chemotherapy was screened at today's appointment. Infertility was briefly discussed and was of no concern to the patient at this time. -Sexual and Reproductive Health: There is an increased risk of chemotherapy exposure to your partner when you are on chemo. When sexually active, wear a protective barrier while on chemotherapy. It is important to use control measures while on chemotherapy. Ask your provider when it might be safe again to try for . If you are , consult with your provider to determine if it is safe to breastfeed. -Vision Changes/Lacrimal Stenosis: There is an increased risk of excessive tearing, lacrimal stenosis, nystagmus, photophobia, and visual disturbances. Encouraged patient to report and visual changes to the clinic/provider. After review of chemotherapy side effects, the logistics of the CADD pump were discussed and questions were answered regarding treatment. Reviewed and gave the patient the Standard Chemotherapy Education Binder with appropriate phone numbers and we reviewed symptoms that would prompt a call to the clinic. Upcoming appointments were discussed and patient knows to follow up at the front end ui developer to get print outs of their schedule and the processes to change/ cancel an appointment. Consent was reviewed with the patient and signed in my presence. The treating physician will review and sign the consent. Allergies were reviewed: No Known Drug Allergies At the end of this discussion, the patient verbalized understanding of the provided education and information and all of their questions were answered to their satisfaction. Patient know how to reach me if further questions or concerns come up. Time spent with the patient: 120 minutes, with all 120 minutes being spent counseling on the detailed information above. Susanne Yañez, PharmD, BCOP SUSANNE YAÑEZ January 03, 2018 11:55
[2018-01-09 10:58] VITALS: BP 95/78
[2018-01-13 12:17] VITALS: BP 123/74
[2018-01-13] MEDS: HEPARIN FLSH (PORT) 500 UN/5ML IVP PRN (13:09)
--- NOTE | 2018-01-13 16:42 | ONCOLOGY FOLLOW UP NOTE ---
EVENT DATE: January 13, 2018 DIAGNOSES 1. Stage T3 rectal adenocarcinoma. 2. Tubular adenoma. CHIEF COMPLAINT Patient is here today for week five of 5-FU intravenous continuous infusion, neoadjuvant treatment for her rectal adenocarcinoma. ONCOLOGY HISTORY Patient is a 57-year-old female who presented with change in bowel movement with diarrhea, smaller caliber stools and rectal bleeding. She had a colonoscopy done on November 10, [address] Jeffrey Jacobson and two sessile 5 mm polyps were found at the rectosigmoid junction and 3 mm sessile polyp at the cecum. All turned out to be tubular adenoma by pathology. There was an ulcerated fungating 4 cm mass found in the cecum, 3-5 cm from the anus with partial obstruction, and the pathology was positive for moderately differentiated adenocarcinoma, negative for MSI by immune stain. She had an EUS done on November 22, 2017 which showed a mass in the rectum with uT3 and uN0 with no lymph nodes seen. CT abdomen and pelvis done on November 21, 2017 showed no evidence of systemic metastasis. She had central port placed on December 01, 2017. Patient started chemoradiation with 5-FU intravenous continuous infusion started on December 12, 2017. HISTORY OF PRESENT ILLNESS Patient is here today for week five of intravenous continuous infusion 5-FU neoadjuvant therapy for her rectal adenocarcinoma. Patient is complaining of cough and shortness of breath. She has occasional nausea and diarrhea. She has rectal bleeding, but it is very little compared to before she started her chemoradiation. She started to have also dysuria. She has back pain. She is weak, tired and fatigued, and she has burning skin at the site of radiation therapy. PAST MEDICAL HISTORY Insignificant, except for her recent rectal adenocarcinoma. PAST SURGICAL HISTORY 1. Hysterectomy. 2. Tonsillectomy as a child. SOCIAL HISTORY Patient is single with no children. 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 She drinks rarely. Denies any use of illicit drugs. FAMILY HISTORY Maternal first cousin had colon cancer at the age of 40. Maternal uncle with colon cancer in his 50s and a maternal great aunt had also colon cancer. CURRENT MEDICATIONS 1. Multivitamin. 2. Lactobacillus combination. 3. Probiotic one capsule daily. 4. Acyclovir 200 mg orally as needed. ALLERGIES No known drug allergies. REVIEW OF SYSTEMS CONSTITUTIONAL: No appetite or weight change. No fever, chills or sweating. No recent infection. HEENT: Ears: No tinnitus or hearing problem. Nose: She has occasional bloody nose. Throat: No sore throat or mouth ulcers. Eyes: No diplopia or visual changes. RESPIRATORY: She has cough and shortness of breath. CARDIOVASCULAR: No chest pain, orthopnea, or paroxysmal nocturnal dyspnea (PND) . No edema. No palpitations. GASTROINTESTINAL: She has occasional nausea and diarrhea. No vomiting. No diarrhea or constipation. No change in bowel movements. No heartburn or swallowing difficulties. No abdominal pain. No jaundice. No hematemesis, melena. She has rectal bleeding, but it is very mild. GENITOURINARY: No hematuria. She has dysuria. MUSCULOSKELETAL: She has back pain. NEUROLOGICAL: No tingling or numbness in the hands or feet. No headaches or convulsions. HEMATOLOGIC/LYMPHATIC: No bleeding or easy bruising. She is weak, tired and fatigued. No enlarged lymph nodes. SKIN: No skin rash or lumps. She has burning skin at the site of the radiation therapy. PSYCHIATRIC: No anxiety or depression. PHYSICAL EXAMINATION GENERAL: Looks stable. Well-developed, well-nourished, and in no acute distress. VITAL SIGNS: Blood pressure 123/74, pulse 75 per minute, respirations 16 per minute, temperature 97.4, pulse ox 96% on room air. HEENT: Head: Atraumatic. No sinus tenderness to palpation. Eyes: No icterus or conjunctivitis. Mouth and Throat: No oral thrush or mucositis. NECK: Supple. No cervical or supraclavicular lymphadenopathy. LUNGS: Clear to auscultation and percussion bilaterally. HEART: Regular rate and rhythm. No gallops, murmurs, clicks or rubs. ABDOMEN: Soft and lax. No tenderness. No hepatosplenomegaly. No masses. EXTREMITIES: No cyanosis, clubbing or edema. LYMPHATICS: No peripheral lymphadenopathy. NEUROLOGICAL: Conscious, alert and oriented times three. No focal motor or sensory deficits. PSYCHIATRIC: Mood and affect appear normal. SKIN: No skin rash, bruise or purpuric eruption. DIAGNOSTIC DATA CBC shows white count 5.2, hemoglobin 12.5, hematocrit 35.8, platelets 214,000. Chem panel is totally normal. CEA is 3.2, which is up from 2.8. ASSESSMENT 1. Stage T3 rectal adenocarcinoma, moderately differentiated, negative for MSI high immunostain after colonoscopy and biopsy of the rectal mass done November 10, 2017. EUS November 22, 2017 showed T3 lesion with no lymph nodes. CT abdomen and pelvis on November 21, 2017 was negative for systemic metastasis. Her pretreatment CEA was 3.1. Patient started treatment with chemoradiation with 5- FU intravenous continuous infusion started on December 12, 2017. She received four weeks so far, and her treatment was complicated with stomatitis thought to be due to her herpes infection. DPD enzyme enzyme testing was done and it was negative for the genotype 1a, and normal for the phenotype, so the patient does not have DPD deficiency. I am planning to proceed with her fifth week this time with 5-FU intravenous continuous infusion. I will see her again in one week with CBC, chem panel, CEA. 2. Tubular adenoma of the rectosigmoid and rectal polyps by colonoscopy November. PLAN 1. 5-FU intravenous continuous infusion, week number five. 2. Acyclovir 1 g daily. 3. Patient to return in one week with CBC, chem panel and CEA. 4. Patient to contact us for any new concern or complaints. MTDD
[2018-01-16 10:39] VITALS: BP 112/74
--- NOTE | 2018-01-19 15:44 | ONCOLOGY FOLLOW UP NOTE ---
EVENT DATE: January 19, 2018 DIAGNOSES 1. Stage T3 rectal adenocarcinoma. 2. Tubular adenoma. CHIEF COMPLAINT Patient is here today for followup of her rectal adenocarcinoma on neoadjuvant treatment with chemoradiation with 5-FU intravenous continuous infusion. ONCOLOGY HISTORY Patient is a 57-year-old female who presented with change in bowel movement with diarrhea, smaller caliber stools and rectal bleeding. She had a colonoscopy done on November 10, [address] Jeffrey Jacobson and two sessile 5 mm polyps were found at the rectosigmoid junction and 3 mm sessile polyp at the cecum. All turned out to be tubular adenoma by pathology. There was an ulcerated fungating 4 cm mass found in the cecum, 3-5 cm from the anus with partial obstruction, and the pathology was positive for moderately differentiated adenocarcinoma, negative for MSI by immune stain. She had an EUS done on November 22, 2017 which showed a mass in the rectum with uT3 and uN0 with no lymph nodes seen. CT abdomen and pelvis done on November 21, 2017 showed no evidence of systemic metastasis. She had central port placed on December 01, 2017. Patient started chemoradiation with 5-FU intravenous continuous infusion started on December 12, 2017. Patient received five weekly doses of intravenous continuous infusion completed on January 20, 2018. HISTORY OF PRESENT ILLNESS Patient is here today for followup of her rectal adenocarcinoma on chemoradiation neoadjuvant treatment with 5-FU intravenous continuous infusion. She is doing fine currently. She has nasal discharge. She has significant diarrhea and she is using Imodium for that, but without much control. She has also crampy abdominal pain with the diarrhea. She has also dysuria. She has cramping right leg sometimes. She is also weak, tired and fatigued. PAST MEDICAL HISTORY Insignificant, except for her recent rectal adenocarcinoma. PAST SURGICAL HISTORY 1. Hysterectomy. 2. Tonsillectomy as a child. SOCIAL HISTORY Patient is single with no children. 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 She drinks rarely. Denies any use of illicit drugs. FAMILY HISTORY Maternal first cousin had colon cancer at the age of 40. Maternal uncle with colon cancer in his 50s and a maternal great aunt had also colon cancer. CURRENT MEDICATIONS 1. Multivitamin. 2. Lactobacillus combination. 3. Probiotic one capsule daily. 4. Acyclovir 200 mg orally as needed. ALLERGIES No known drug allergies. REVIEW OF SYSTEMS CONSTITUTIONAL: No appetite or weight change. No fever, chills or sweating. No recent infection. HEENT: Ears: No tinnitus or hearing problem. Nose: She has nasal discharge. Throat: No sore throat or mouth ulcers. Eyes: No diplopia or visual changes. RESPIRATORY: She has cough and shortness of breath. CARDIOVASCULAR: No chest pain, orthopnea, or paroxysmal nocturnal dyspnea (PND) . No edema. No palpitations. GASTROINTESTINAL: She has diarrhea. She has crampy abdominal pain with the diarrhea. GENITOURINARY: No hematuria. She has dysuria. MUSCULOSKELETAL: She has crampy right leg. NEUROLOGICAL: No tingling or numbness in the hands or feet. No headaches or convulsions. HEMATOLOGIC/LYMPHATIC: No bleeding or easy bruising. She is weak, tired and fatigued. No enlarged lymph nodes. SKIN: No skin rash or lumps. She has burning skin at the site of the radiation therapy. PSYCHIATRIC: No anxiety or depression. PHYSICAL EXAMINATION GENERAL: Looks stable. Well-developed, well-nourished, and in no acute distress. VITAL SIGNS: Blood pressure 103/72, pulse 67 per minute, respirations 16 per minute, temperature 97.5, pulse ox 95% on room air. HEENT: Head: Atraumatic. No sinus tenderness to palpation. Eyes: No icterus or conjunctivitis. Mouth and Throat: No oral thrush or mucositis. NECK: Supple. No cervical or supraclavicular lymphadenopathy. LUNGS: Clear to auscultation and percussion bilaterally. HEART: Regular rate and rhythm. No gallops, murmurs, clicks or rubs. ABDOMEN: Soft and lax. No tenderness. No hepatosplenomegaly. No masses. EXTREMITIES: No cyanosis, clubbing or edema. LYMPHATICS: No peripheral lymphadenopathy. NEUROLOGICAL: Conscious, alert and oriented times three. No focal motor or sensory deficits. PSYCHIATRIC: Mood and affect appear normal. SKIN: No skin rash, bruise or purpuric eruption. DIAGNOSTIC DATA CEA is 2.4. Chem panel is totally normal. CBC showed white count 4.6, hemoglobin 13.1, hematocrit 37.1, platelets 257,000. ASSESSMENT 1. Stage T3 rectal adenocarcinoma, moderately differentiated, negative for MSI high immunostain after colonoscopy and biopsy of the rectal mass done November 10, 2017. EUS November 22, 2017 showed T3 lesion with no lymph nodes. CT abdomen and pelvis on November 21, 2017 was negative for systemic metastasis. Her pretreatment CEA was 3.1. Patient received five weekly doses of intravenous continuous infusion 5-FU between December 12, 2017 through January 20, 2018. Her treatment was complicated with stomatitis thought to be due to herpes infection. It was treated with Valtrex prophylactically. DPD enzyme testing was done and was negative for genotype 1a, and normal for the phenotype, so the patient does not have DPD deficiency. Patient also had significant diarrhea by the end of her treatment. Patient was advised today to get an appointment with her surgeon to do her surgery, and as per patient she will contact her surgeon actually today to get an appointment in the next few weeks. I am planning to see her next time in two weeks after her surgery with CBC, chem panel and CEA. Her last CEA was normal at 2.4, down from 3.1. 2. Chemotherapy-induced diarrhea. Not responding well to Imodium. I am planning to put her on Lomotil two tablets three times daily p.r.n. for the diarrhea. 3. Tubular adenoma of the rectosigmoid and rectal polyps by colonoscopy November. PLAN 1. Continue followup. 2. Lomotil two tabs three times daily p.r.n. for diarrhea. 3. Valtrex 1 g daily. 4. Patient to return two weeks after her surgery with CBC, chem panel and CEA. 5. Patient to contact us for any new concern or complaints. MTDD
[2018-01-20] MEDS: HEPARIN FLSH (PORT) 500 UN/5ML IVP PRN (10:25)
[2018-02-07 12:02] VITALS: BP 103/70
[2018-02-07 12:08] LABS: PLATELET COUNT, AUTOMATED 318 K/uL (150-450)
[~2018-02-24] VITALS: Ht 163.8 cm; Wt 69.7 kg
[~2018-02-24 09:58] MED LIST changes: +ALTEPLASE RECOMB 2 MG VIAL IVP PRN; +DEXTROSE 5%(*) 100 ML BAG 100 ML IVPB PRN; +FLUOROURACIL IV ONE; +FLUOROURACIL IV PRN; +LIDOCAINE/SOD BICARB 8.4% SYR ID PRN; +NS 0.9% IV ONE; +NS 0.9% IV PRN; +NS(*) 0.9% 100 ML BAG 100 ML IVPB PRN; +NS(*) 0.9% 500 ML BAG 500 ML IV PRN; +WATER FOR INJ,STERILE 20 ML IVP PRN
[2018-02-24 10:09] VITALS: BP 108/67
--- NOTE | 2018-02-24 17:44 | [facility] ONCOLOGY NOTE ---
EVENT DATE: February 24, 2018 DIAGNOSES 1. Stage T3 rectal adenocarcinoma. 2. Tubular adenoma. CHIEF COMPLAINT Patient is here today for followup of her rectal adenocarcinoma, on neoadjuvant treatment with chemoradiation with 5-FU intravenous continuous infusion which was done. ONCOLOGY HISTORY Patient is a 57-year-old female who presented with change in bowel movement with diarrhea, smaller caliber stools and rectal bleeding. She had a colonoscopy done on November 10, 2017, by Dr. Jeffrey Jacobson. Two sessile 5 mm polyps were found at the rectosigmoid junction and 3 mm sessile polyp at the cecum. All turned out to be tubular adenoma by pathology. There was an ulcerated fungating 4 cm mass found in the cecum, 3 to 5 cm from the anus with partial obstruction, and the pathology was positive for moderately differentiated adenocarcinoma, negative for MSI by immune stain. She had an EUS done on November 22, 2017, which showed a mass in the rectum with uT3 and uN0 with no lymph nodes seen. CT abdomen and pelvis done on November 21, 2017, showed no evidence of systemic metastasis. She had central port placed on December 01, 2017. Patient started chemoradiation with 5-FU intravenous continuous infusion started on December 12, 2017. Patient received five weekly doses of intravenous continuous infusion, completed on January 20, 2018. HISTORY OF PRESENT ILLNESS Patient is here today for followup of her rectal adenocarcinoma after finishing her neoadjuvant chemoradiation. Patient has been seen by her rectal surgeon, and the patient is scheduled on the March to have her surgery done. She is totally asymptomatic this visit except for some urinary symptoms possible from the previous radiation with some sort of urgency dysuria and difficulty emptying sometimes. PAST MEDICAL HISTORY Insignificant except for her recent rectal adenocarcinoma. PAST SURGICAL HISTORY 1. Hysterectomy. 2. Tonsillectomy as a child. SOCIAL HISTORY Patient is single with no children. 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 She drinks rarely. Denies any use of illicit drugs. FAMILY HISTORY Maternal first cousin had colon cancer at the age of 40. Maternal uncle with colon cancer in his 50s, and a maternal great aunt had also colon cancer. CURRENT MEDICATIONS 1. Multivitamin. 2. Lactobacillus combination. 3. Probiotic one capsule daily. 4. Acyclovir 200 mg orally as needed. ALLERGIES No known drug allergies. REVIEW OF SYSTEMS CONSTITUTIONAL: No appetite or weight change. No fever, chills or sweating. No recent infection. HEENT: Ears: No tinnitus or hearing problem. Nose: She has nasal discharge. Throat: No sore throat or mouth ulcers. Eyes: No diplopia or visual changes. RESPIRATORY: She has cough and shortness of breath. CARDIOVASCULAR: No chest pain, orthopnea, or paroxysmal nocturnal dyspnea (PND) . No edema. No palpitations. GASTROINTESTINAL: She has diarrhea. She has crampy abdominal pain with the diarrhea. GENITOURINARY: The patient has dysuria and urgency and difficulty emptying sometimes. MUSCULOSKELETAL: She has crampy right leg. NEUROLOGICAL: No tingling or numbness in the hands or feet. No headaches or convulsions. HEMATOLOGIC/LYMPHATIC: No bleeding or easy bruising. She is weak, tired and fatigued. No enlarged lymph nodes. SKIN: No skin rash or lumps. She has burning skin at the site of the radiation therapy. PSYCHIATRIC: No anxiety or depression. PHYSICAL EXAMINATION GENERAL: Looks stable. Well-developed, well-nourished, and in no acute distress. VITAL SIGNS: Blood pressure 108/67, pulse 59 per minute, respirations 16 per minute, temperature 97, pulse ox 97% on room air. HEENT: Head: Atraumatic. No sinus tenderness to palpation. Eyes: No icterus or conjunctivitis. Mouth and Throat: No oral thrush or mucositis. NECK: Supple. No cervical or supraclavicular lymphadenopathy. LUNGS: Clear to auscultation and percussion bilaterally. HEART: Regular rate and rhythm. No gallops, murmurs, clicks or rubs. ABDOMEN: Soft and lax. No tenderness. No hepatosplenomegaly. No masses. EXTREMITIES: No cyanosis, clubbing or edema. LYMPHATICS: No peripheral lymphadenopathy. NEUROLOGICAL: Conscious, alert and oriented times three. No focal motor or sensory deficits. PSYCHIATRIC: Mood and affect appear normal. SKIN: No skin rash, bruise or purpuric eruption. DIAGNOSTIC DATA CBC showed white count 5.2, hemoglobin 13.8, hematocrit 95.3, platelets 318, 000. Chem panel is totally normal. CEA is normal at 2.1. ASSESSMENT Stage T3 rectal adenocarcinoma, moderately differentiated, negative for MSI high immunostain after colonoscopy and biopsy of the rectal mass done November 10, 2017. EUS November 22, 2017, showed T3 lesion with no lymph nodes. CT abdomen and pelvis November 21, 2017, was negative for systemic metastasis. Her pretreatment CEA was 3.1. Her treatment was complicated with stomatitis, thought to be due to herpes infection, and the patient treated with Valtrex prophylactically. DPD enzyme testing was done, and it was negative for genotype 1a and normal for phenotype, so the patient does not have DPD deficiency. She had also significant diarrhea which resolved completely. She saw her surgeon, and the patient is going to have her surgery on the March. I am planning to see her two weeks after her surgery on the March with CBC, chemistry panel, CEA, and will decide at that time about adjuvant treatment with chemotherapy with FOLFOX regimen. PLAN 1. Continue followup. 2. Patient to return two weeks after her surgery, scheduled on the March, with CBC, chem panel, CEA. 3. Patient to contact us for any new concerns or complaints. [facility]
== END 2018-03-02 13:46 | disposition home or self-care (01) ==
LOC: ONC 09:58
PROVIDERS: ATTEND Internal Medicine Hematology
DX: C20 Malignant neoplasm of rectum (principal); C19 Malignant neoplasm of rectosigmoid junction; D12.7 Benign neoplasm of rectosigmoid junction; R06.02 Shortness of breath; L98.499 Non-pressure chronic ulcer of skin of other sites with unspecified severity; K52.1 Toxic gastroenteritis and colitis; T45.1X5A Adverse effect of antineoplastic and immunosuppressive drugs, initial encounter; R05 Cough
CPT/HCPCS: 36415; 36591; 81232; 82378; 85025; 85027; 99212; J1642; 82040; 82247; 82310; 82374; 82435; 82565; 82947; 84075; 84132; 84155; 84295; 84450; 84460; 84520